=== PATIENT | female | born 1975 | race Caucasian/White ===

== ENCOUNTER 2020-06-01 12:37 | Observation (INO) | payer OTHER ==
[~2020-06-01] VITALS: Ht 167.6 cm; Wt 78.9 kg
[2020-06-01 13:30] LABS: RED BLOOD COUNT 3.49 M/UL (4.00-5.10); WHITE BLOOD COUNT 6.6 K/UL (4.5-11.0)
[2020-06-01 13:34] LABS: HEMOGLOBIN 5.6 gm/dl (12.3-15.3)
[2020-06-01 13:50] LABS: BUN/CREATININE RATIO 26 (0-10)
[2020-06-01] MEDS ORDERED: BARIATRIC VITAMIN PO (15:52)
[2020-06-02 08:04] LABS: HEMOGLOBIN 7.4 gm/dl (12.3-15.3); RED BLOOD COUNT 3.89 M/UL (4.00-5.10); WHITE BLOOD COUNT 9.5 K/UL (4.5-11.0)
[2020-06-02 08:09] LABS: BUN/CREATININE RATIO 20 (0-10)
[2020-06-02] MEDS ORDERED: NIFEREX 150 MG150 MG PO (10:00)
== END 2020-06-02 16:20 | disposition home or self-care (01) ==
LOC: ER1 12:37 → CDU 15:29 → M/S 15:29
PROVIDERS: Physician Assistant; Physician Assistant Medical; ADMIT Internal Medicine
DX: D50.9 Iron deficiency anemia, unspecified (principal); K90.9 Intestinal malabsorption, unspecified; F17.210 Nicotine dependence, cigarettes, uncomplicated; E66.9 Obesity, unspecified; Z68.28 Body mass index [BMI] 28.0-28.9, adult; Z20.822 Contact with and (suspected) exposure to COVID-19; Z98.84 Bariatric surgery status; Z79.899 Other long term (current) drug therapy
CPT/HCPCS: 36415; 36430; 71045; 80048; 80053; 81001; 82272; 82607; 82728; 82746; 83010; 83540; 83550; 83735; 84703; 85025; 85027; 85045; 85610; 85730; 86850; 86870; 86900; 86901; 86902; 86905; 86920; 86922; 96365; 96374; 96376; 99285; G0008; G0378; J1756; J7050; P9016; U0002

== ENCOUNTER → 2021-02-02 | Outpatient (CLI) | payer OTHER ==
[~2021-02-02] MED LIST: BARIATRIC VITAMIN PO; NIFEREX 150 MG150 MG PO
== END ==
LOC: KOH-I 08:15
DX: R79.89 Other specified abnormal findings of blood chemistry (principal); Z90.49 Acquired absence of other specified parts of digestive tract
CPT/HCPCS: 76700

== ENCOUNTER → 2021-04-01 | Outpatient (CLI) | payer OTHER | LOC: EXRD 09:38 | DX: M25.512 Pain in left shoulder (principal) | CPT/HCPCS: 73030 ==

== ENCOUNTER → 2021-05-03 | Day surgery (SDC) | payer OTHER ==
[~2021-05-03] MED LIST changes: +MOBIC7.5 MG PO; +VITAMIN D31250 MCG PO
[2021-05-04 12:15] LABS: HBSAG SCREEN Negative (Negative); HEP A AB, IGM Negative (Negative); HEP B CORE AB, IGM Negative (Negative); HEP C VIRUS AB <0.1 (0.0-0.9)
[2021-05-04 12:15] LABS: HIV AB/P24 AG SCREEN Non Reactive (Non Reactive)
[2021-05-04 13:15] LABS: ALPHA-1-ANTITRYPSIN, SERUM 127 mg/dL (101-187)
[2021-05-04 16:15] LABS: MITOCHONDRIAL (M2) ANTIBODY <20.0 Units (0.0-20.0)
== END | disposition home or self-care (01) ==
LOC: OR 06:05
PROVIDERS: Internal Medicine Gastroenterology
DX: K31.A15 Gastric intestinal metaplasia without dysplasia, involving multiple sites (principal); K64.1 Second degree hemorrhoids; D50.9 Iron deficiency anemia, unspecified; R94.5 Abnormal results of liver function studies; E66.3 Overweight; F17.210 Nicotine dependence, cigarettes, uncomplicated; Z90.49 Acquired absence of other specified parts of digestive tract; Z68.29 Body mass index [BMI] 29.0-29.9, adult; Z20.822 Contact with and (suspected) exposure to COVID-19; Z98.84 Bariatric surgery status
CPT/HCPCS: 36415; 80074; 80076; 82103; 82728; 83540; 83550; 84703; 86038; 87389; J2704; J7040